=== PATIENT | male | born 1950 | race Caucasian/White ===

== ENCOUNTER 2017-06-23 00:08 | Inpatient (IN) | payer OTHER ==
[2017-06-15 13:02] LABS: HEMATOCRIT 44.1 % (42.0-52.0); HEMOGLOBIN 15.2 gm/dL (14.0-18.0); MCH 31.3 pg (26.0-34.0); MCHC 34.4 g/dL (28.0-37.0); RBC 4.85 mil/uL (4.50-6.00); RDW 12.3 % (10.5-14.5); URINE BILIRUBIN NEGATIVE (Negative); URINE BLOOD NEGATIVE (Negative); URINE COLOR YELLOW; URINE GLUCOSE-RANDOM* NEGATIVE (Negative); URINE KETONES NEGATIVE (Negative); URINE LEUKOCYTES-REFLEX NEGATIVE (Negative); URINE PROTEIN (DIPSTICK) NEGATIVE (Negative); URINE UROBILINOGEN 0.2 E.U./dl (0.2-1.0); WBC 4.8 thou/uL (4.0-11.0)
[2017-06-15 13:10] LABS: ALBUMIN 4.3 g/dL (3.4-5.0); CREATININE 0.9 mg/dL (0.7-1.3); POTASSIUM 4.6 mmol/L (3.5-5.1)
[2017-06-15 13:16] LABS: PROTIME 9.9 Seconds (9.3-11.4)
[2017-06-23] VITALS (7 sets, daily range): BP systolic 122–149; BP diastolic 70–78
[~2017-06-23] VITALS: Ht 185.4 cm; Wt 126.6 kg
--- NOTE | ~2017-06-23 | O ---
[facility] [place] [address] OPERATIVE REPORT Name: DANETTE GANT Room #: 402-P [facility] IN M.R.#: [id number] Admission: 06/23/17 Attend Phys: Nadir Noel MD Discharge: 06/29/17 Date of : 50 Report #: [id number] THIS REPORT FOR: //name// CC: TELMA Noel DATE OF SERVICE: 06/23/2017 PREOPERATIVE DIAGNOSIS: Right knee degenerative joint disease, severe. POSTOPERATIVE DIAGNOSIS: Right knee degenerative joint disease, severe. PROCEDURE: Right total knee arthroplasty. SURGEON: Nadir Noel M.D. STAFF REPORTER: SAAD Jackson. INDICATIONS FOR STAFF REPORTER: During the course of operation, extensive manipulation, retraction and limb positioning was required. This was afforded to me by my assistant basketball coach. ANESTHESIA: General. INDICATIONS: See H and P. IMPLANTS UTILIZED: Used a [employer] knee system. We used a size 8 cruciate retaining porous femoral component. We used a size 7 tibial tray with a 9 mm insert and a 35 mm peg patella. DESCRIPTION OF PROCEDURE: After adequate general anesthesia had been obtained, the patient's right lower extremity was prepped and draped in the usual meticulous sterile fashion. Limb was exsanguinated with gravity and tourniquet inflated to 350 torr. Anterior midline incision was made, subQ divided sharply. Hemostasis obtained with electrocautery. Medial parapatellar incision was made and medial release performed. The drill was used to drill the distal femur. We placed the intramedullary guide, we used a 6-degree valgus which matched the patient's anatomy for the distal femoral cut, placed in appropriate rotation and the distal femoral cut was made. We used a measuring device to determine the size, ____ was appropriate size for this patient. We marked the distal femur, impacted the cutting guide into position and the anterior, posterior and chamfer cuts were made. Rongeur was used to remove additional osteophytes. At this time, the ACL was transected, tibia translated anteriorly, menisci were excised. The drill was used to drill central portion of the tibia. This hole [facility] [address] [place] [address] OPERATIVE REPORT Name: DANETTE GANT Room #: 402-P [facility] IN M.R.#: [id number] Admission: 06/23/17 Attend Phys: Nadir Noel MD Discharge: 06/29/17 Date of : 50 Report #: [id number] was enlarged, irrigated, suctioned, and the intramedullary guide placed to full length of tibia. Proximal tibia cutting guide was placed at appropriate height. Proximal tibial cut was made. The 7 tray gave us the best coverage on the tibia. We placed the trial spacer in position and the 9 spacer seemed to give us the best flexion and extension gap. We then placed the trial components in position with a 9 spacer and the patella tracked well and the knee had good stability parameters, both in flexion and extension. We then measured the patella, the cutting guide clamped into place, patellar cut was made. The 35 template gave us best coverage. Pedicles were drilled, trial component put in position, it tracked normally. At this time, the knee was taken through several cycles of flexion and extension. Tibial tray rotation was marked, distal femur was punched. We then removed the trial components, made the tibial keel cuts, irrigated the knee with both pulse lavage and antibiotic irrigation. We placed bone plugs in the proximal tibia and the distal femur. The cement was vacuum mixed and when it reached the appropriate consistency, the knee was thoroughly dried, the tibial tray was cemented in place, excess cement was removed. The polyethylene was impacted in place and the femur impacted in place and the knee was taken out to 30 degrees of flexion with uniform compression placed across components. Patellar button was then cemented into place and again excess cement was removed. We allowed the cement to fully cure, when it had done so, we irrigated, dried thoroughly and inspected. Drains were placed superolaterally both deep and superficial. Retinacular layer closed with combination of interrupted [id number]-[id number], #1 Vicryl as well as running #1 Tevdek. SubQ closed with 2-0 Monocryl, skin closed with floridalma. Sterile compressive dressing was applied. Tourniquet deflated. <ELECTRONICALLY SIGNED> By: Nadir Noel MD 06/30/17 1539 [id number] [id number] Nadir Noel MD /nt
--- NOTE | ~2017-06-23 | EKG ---
[address] [place] [address] ELECTROCARDIOGRAM REPORT Name: DANETTE GANT Room #: PRE IN [facility]#: [id number] Admission: Attend Phys: Nadir Noel MD Discharge: Date of : 50 Report #: [id number] THIS REPORT FOR: //name// [facility] Test Date: 2017-06-15 Test Time: 12:55:30 Pat Name: DANETTE FIPEREZPAULINA Department: Room: Gender: Medical Officer: aruna peraza : 1950 Requested By: Nadir Noel Order Number: [id number] MD: Nelson Villanueva Measurements Intervals [place] Rate: 58 P: 63 UT: 173 QRS: 69 QRSD: 109 T: -48 QT: 417 QTc: 410 Interpretive Statements Sinus rhythm Repol abnrm suggests ischemia, inferior leads Borderline ST elevation, lateral leads Baseline wander in lead(s) V3 No previous ECG available for comparison Electronically Signed On 06-15-2017 16:38:06 CDT by Nelson Villanueva [email or web address] <ELECTRONICALLY SIGNED> By: Nelson Villanueva MD 06/15/17 1638 1255 1255 Nelson Villanueva MD /EPI
[~2017-06-23 00:08] MED LIST: ASPIR-LOW81 MG PO; COZAAR 25 MG TA25 M1 PO; EXCEDRIN CAPLE1 EACH PO; FISH OIL PO; NORVASC10 MG PO; PRESERVISION A1 EAC2 PO
[2017-06-24] VITALS (8 sets, daily range): BP systolic 126–144; BP diastolic 57–77
[2017-06-24 05:59] LABS: HEMATOCRIT 37.6 % (42.0-52.0); HEMOGLOBIN 12.8 gm/dL (14.0-18.0); MCH 30.9 pg (26.0-34.0); MCV 90.9 fL (80.0-100.0); RBC 4.14 mil/uL (4.50-6.00); RDW 11.9 % (10.5-14.5); WBC 8.8 thou/uL (4.0-11.0)
[2017-06-24 08:02] LABS: CALCIUM 8.6 mg/dL (8.5-10.1); CREATININE 1.1 mg/dL (0.7-1.3)
[2017-06-25 04:20] VITALS: BP 121/40
[2017-06-25 06:31] LABS: HEMOGLOBIN 11.6 gm/dL (14.0-18.0); MCH 31.1 pg (26.0-34.0); MCHC 34.3 g/dL (28.0-37.0); MCV 90.6 fL (80.0-100.0); RBC 3.75 mil/uL (4.50-6.00); WBC 9.7 thou/uL (4.0-11.0)
[2017-06-25] MEDS ORDERED: MS CONTIN15 MG PO (06:48)
[2017-06-25] MEDS ORDERED: PERCOCET 10-321 EACH PO (06:48)
[2017-06-25] MEDS ORDERED: XARELTO10 MG PO (06:48)
[2017-06-25 08:00] VITALS: BP 132/51
[2017-06-25 15:39] VITALS: BP 127/57
[2017-06-25 19:23] VITALS: BP 150/68
[2017-06-26] VITALS (7 sets, daily range): BP systolic 108–133; BP diastolic 54–70
[2017-06-26 05:09] LABS: HEMATOCRIT 29.3 % (42.0-52.0); HEMOGLOBIN 10.2 gm/dL (14.0-18.0); MCH 31.4 pg (26.0-34.0); MCHC 34.8 g/dL (28.0-37.0); MCV 90.3 fL (80.0-100.0); RBC 3.24 mil/uL (4.50-6.00); RDW 12.4 % (10.5-14.5); WBC 8.9 thou/uL (4.0-11.0)
[2017-06-27 04:40] VITALS: BP 155/78
[2017-06-27 07:20] VITALS: BP 148/75
[2017-06-27 08:00] VITALS: BP 155/66
[2017-06-27 18:17] VITALS: BP 155/66
[2017-06-27 20:00] VITALS: BP 150/68
[2017-06-28 04:00] VITALS: BP 131/70
[2017-06-28 08:00] VITALS: BP 117/69; BP 125/66
[2017-06-28 16:00] VITALS: BP 125/66
[2017-06-28 19:40] VITALS: BP 133/70
[2017-06-29 03:45] VITALS: BP 106/60
[2017-06-29 08:00] VITALS: BP 137/71
[2017-06-29 10:17] VITALS: BP 129/71
[2017-06-29 12:24] VITALS: BP 129/71
== END 2017-06-29 13:22 | disposition home health service (06) | DRG 470 ==
LOC: PRE 00:08 → TBA 05:11 → 4N 05:11 → PRE 05:35 → 4N 10:58 → PRE 12:30 → ENTRNSPT 06-29 13:06 → EDTRNSPTSTS 06-29 13:09 → 4N 06-29 13:22
PROVIDERS: Orthopaedic Surgery
PROC: 3E0T3BZ Introduction of Anesthetic Agent into Peripheral Nerves and Plexi, Percutaneous Approach (ICD-10-PCS; principal; 2017-06-23)
PROC: 0SRC0J9 Replacement of Right Knee Joint with Synthetic Substitute, Cemented, Open Approach (ICD-10-PCS; principal; 2017-06-23)
DX: M17.11 Unilateral primary osteoarthritis, right knee (principal); D62 Acute posthemorrhagic anemia; I10 Essential (primary) hypertension; K59.00 Constipation, unspecified; Z88.8 Allergy status to other drugs, medicaments and biological substances; Z85.46 Personal history of malignant neoplasm of prostate; Z23 Encounter for immunization
CPT/HCPCS: 10790; 50010; 50101; 50415; 50954; 51130; 51225; 51320; 51412; 51771; 52001; 53078; 53364; 56525; 56527; 62110; 62900; 70005